=== PATIENT | male | born 1990 | race Caucasian/White ===

== ENCOUNTER 2016-09-15 21:40 | Emergency (ER) | payer SELFPAY ==
--- NOTE | 2016-09-24 23:35 | ER ---
ADMIT: 09/15/2016 RM/LOC: ER [facility] MR#: [id number] [facility] [address] [place], [place] [id number] DENIS VELIZ [address] [place] [address] Emergency Room Report SEX: M AGE: 25 : 1990 DATE: 09/15/2016 ADDENDUM: A 25-year-old male, comes in with some right-sided testicular pain. He states he is having some intermittent pain on the right testicle over the past several days. He notes he had some swelling for the past 5 to 6 hours. He states he thought he might have a twisting of his testicle 4 months ago, which he states he believed he untwisted and since then had, had no similar episodes. On exam, he had some mild tenderness in the upper pole of his testicle around his epididymis, but it is minor. There are no skin changes, there is no swelling I can appreciate. I did get an ultrasound, which shows good blood flow, no torsion. It is read as bilateral epididymal heads appear prominent and maybe hypervascular, which could be a bilateral epididymitis, however, that would be quite unusual. Based on the patient's symptoms, however, I did decide to treat him as if he had epididymitis and he was given azithromycin and ceftriaxone here, he is discharged home. He is to follow up with Dr. Myers if not improving and return to the ER for any concerns of increasing pain or swelling. DIAGNOSES: 1. Right testicular pain. 2. Possible epididymitis. Torito Lira MD/ mariza JOB #: [id number] CC: Torito Lira MD, Attending Physician Francisco Myers MD, Family Physician
== END 2016-09-15 23:30 | disposition home or self-care (01) ==
LOC: ER 21:40
DX: N50.811 Right testicular pain (principal); F17.210 Nicotine dependence, cigarettes, uncomplicated